=== PATIENT | male | born 1990 | race Caucasian/White ===

== ENCOUNTER 2023-02-20 09:17 | Emergency (ER) | payer BC, SELFPAY ==
--- NOTE | 2023-02-20 09:28 | ED_ITS ---
HPI - Skin/Abscess/Foreign Bdy General Chief complaint: Skin/Abscess/Foreign Body Stated complaint: Rash Time Seen by Provider: 02/20/23 09:20 Source: patient Mode of arrival: ambulatory Limitations: no limitations History of Present Illness HPI narrative: Carlin is a 32 year male patient presenting to the clinic today with complaints of possible poison qi to his left arm. He reports he has had this rash for a f ew days now however is now has spread on his chest last night. Review of Systems Review of Systems: Pertinent positives per HPI. Patient denies any fever, chills, headache, visual changes, dizziness, cough, runny nose, sore throat, shortness of breath, chest pain, palpitations, nausea, vomiting, diarrhea, constipation, abdominal pain, or any urinary issues. PMFSH Comments At the time of my signature, I reviewed and agree with the nursing past medical, surgical, social, and family history. There is no relevant family history pertinent to the patient complaint. Exam Narrative: General: Well-developed, well nourished, in no apparent distress Head: Normocephalic, atraumatic. Cardio: Regular rate and rhythm, s1 and s2 normal, no murmur appreciated. Resp: Clear to auscultation bilaterally, no rhonchi, rales, wheezing or rubs. Integumentary: [place], warm, and dry, red, blistered, itchy lesions to the left volar forearm and to the left chest wall Course Course Emergency Course: Portions of this record may have been created with voice recognition software. Level of Care: Express Care Visit Vital Signs Vital signs: Vital signs reviewed MDM - Skin/Abscess/Foreign Bdy MDM Narrative Medical decision making narrative: At the time of visit patient is resting comfortably on exam table. I suspect he has got poison qi dermatitis. Will place patient on triamcinolone cream. Supportive measures were discussed with the patient he voiced understanding discharge instructions and agrees to treatment plan. Differential Diagnosis Differential diagnosis: Likely cellulitis, eczema, insect bites and contact dermatitis Discharge Plan Discharge Clinical Impression: Allergic contact dermatitis due to plant Patient Disposition: Home, Self-Care Condition: Stable Instructions: Antibiotic Form, Poison Qi (ED) Additional Instructions: Apply triamcinolone cream as directed Avoid hot showers May apply calamine lotion to rash Avoid scratching and this causes rash to spread May take benadryl 25-50mg every 6 hours as needed for itching. Follow up with your PCP in 3-5 days if symptoms persist or sooner if they worsen Go to the Emergency Room if symptoms worsen- fever, rash spreading with treatment, shortness of breath, tongue swelling, drooling, or chest pain Prescriptions: New triamcinolone acetonide 0.1 % cream 1 applic topical BID 7 Days Qty: 30 0RF Follow-up/Referrals: PHYSICIAN,MATERIALS PLANNING ANALYST [Primary Care Provider] - Time of Disposition: 09:34 Quality NIHSS Nursing Documentation ED NIHSS nursing documentation: reviewed/agree
[2023-02-20 09:32] VITALS: BP 140/78; PULSE 57; RESP 16; TEMP 36.5; O2SAT 100
== END 2023-02-20 09:40 | disposition home or self-care (01) ==
PROVIDERS: Emergency Provider Nurse Practitioner Family
DX: L23.7 Allergic contact dermatitis due to plants, except food (principal)
CPT/HCPCS: 99213; G0463

== ENCOUNTER 2023-06-11 17:07 | Emergency (ER) | payer BC, SELFPAY ==
--- NOTE | 2023-06-11 17:16 | ED.WOUNDLAC ---
HPI - Wound/Laceration General Chief Complaint: Wound/Laceration Stated Complaint: Left Leg Laceration Time Seen by Provider: 06/11/23 17:22 Source: patient and RN notes reviewed Mode of arrival: ambulatory Limitations: no limitations History of Present Illness HPI narrative: 33-year-old male presents with concern for laceration to the left zuniga. He reports he cut it on a bicycle pedal prior to arrival. He denies decreased strength, sensation, range of motion in the leg. He is not up-to-date on his tetanus vaccination. Related Data Home Medications Medication Instructions Recorded Confirmed No Home Medications 06/11/23 06/11/23 Allergies Allergy/AdvReac Type Severity Reaction Status Date / Time No Known Allergies Allergy Verified 06/11/23 17:19 Review of Systems Review of Systems: CONSTITUTIONAL: Denies malaise, chills, sweats, or fever. SKIN: Reports laceration to the anterior left lower leg MUSCULOSKELETAL: Denies muscle skeletal pain NEUROLOGIC: Denies numbness, weakness All systems reviewed & are unremarkable except as noted in HPI and below PMFSH Comments At time of signature, agree with nursing past medical, surgical, social and family history. There is no relevant family history pertinent to the presenting complaint Exam Narrative: GENERAL: Well-appearing, well-nourished, and in no acute distress. HEAD: Normocephalic, atraumatic. EYES: PERRLA, conjunctivae clear, and EOMI. ENT: Mucous membranes moist. NECK: Supple. No lymphadenopathy CHEST: Clear to auscultation. No respiratory distress. HEART: Regular rate and rhythm. SKIN: Warm, dry. 4 cm linear laceration into the subcutaneous tissue noted to the left anterior mid leg NEURO: Alert and oriented x3. PSYCH: Normal mood and affect Course Course Emergency Course: Patient is aware of diagnosis, understands and agrees to treatment plan. Anticipatory guidance given. Patient agrees to follow-up as directed and is aware of reasons to seek care at the emergency department. Portions of this record may have been created with voice recognition software Level of Care: Express Care Visit Vital Signs Vital signs: Reviewed. Procedures Laceration Laceration 1: Date: 06/11/23 Time: 17:26 Site: lower extremity Side (If applicable): left Size (cm): 4.5 Description: linear Depth: simple, single layer Local Anesthetic: lidocaine 1% Amount of anesthesia used (mL): 4 Pre-repair: wound explored and irrigated extensively ====== Skin Level ====== Skin layer closed with: nylon Size (cm): 4-0 Number of sutures: 6 Technique: simple, interrupted ====== Subcutaneous Layer ====== ====== Muscle Layer ====== ====== Tendon Layer ====== MDM - Wound/Laceration MDM Narrative Medical decision making narrative: Wound explored for foreign body and copious irrigation provided with no evidence of FB. Discussed the potential of retained foreign body with the patient and signs/symptoms that should prompt the patient to immediately go to the ED for reevaluation. The wound was explored and no foreign bodies were found. There was no evidence of tendon or nerve lacerations. A sterile dressing was then applied and anticipatory guidance was provided. Tetanus prophylaxis [(was/was not)] given Differential Diagnosis Differential diagnosis: Likely laceration, abrasion and avulsion of skin Critical Care Time Critical Care Time Critical Care Time: No Discharge Plan Discharge Clinical Impression: Laceration Patient Disposition: Home, Self-Care Condition: Stable Instructions: Laceration (ED) Additional Instructions: Keep wound clean, and dry. Apply antibiotic ointment twice daily. Cover with bandage as needed to prevent contamination. Clean with soap and water twice daily, but do not soak, take baths, or swim until wound is completely healed.
[2023-06-11 17:21] VITALS: BP 130/56; PULSE 90; RESP 16; TEMP 37.3; O2SAT 98
== END 2023-06-11 17:55 | disposition home or self-care (01) ==
PROVIDERS: Emergency Provider Nurse Practitioner
DX: S81.812A Laceration without foreign body, left lower leg, initial encounter (principal); W45.8XXA Other foreign body or object entering through skin, initial encounter
CPT/HCPCS: 12002; 99212; G0463

== ENCOUNTER 2023-06-19 10:36 | Emergency (ER) | payer BC, SELFPAY ==
[2023-06-19 10:45] VITALS: BP 120/72; PULSE 76; RESP 16; TEMP 36.8; O2SAT 99
--- NOTE | 2023-06-19 10:57 | ED.WOUNDLAC ---
HPI - Wound/Laceration General Chief Complaint: Wound/Laceration Stated Complaint: suture removal Time Seen by Provider: 06/19/23 10:45 Source: patient Mode of arrival: ambulatory Limitations: no limitations History of Present Illness HPI narrative: Carlin is a 33-year-old male patient presenting to the clinic today for suture removal to his left lower anterior leg. He reports a days ago he cut his left lower leg. Six interrupted sutures were placed. Wound seems to be healing appropriately without sign of infection Related Data Home Medications Medication Instructions Recorded Confirmed No Home Medications 06/11/23 06/19/23 Allergies Allergy/AdvReac Type Severity Reaction Status Date / Time No Known Allergies Allergy Verified 06/19/23 10:41 Review of Systems Review of Systems: Pertinent positives per HPI. Patient denies any fever, chills, rash, headache, visual changes, dizziness, cough, runny nose, sore throat, shortness of breath, chest pain, palpitations, nausea, vomiting, diarrhea, constipation, abdominal pain, or any urinary issues. PMFSH Comments At the time of my signature, I reviewed and agree with the nursing past medical, surgical, social, and family history. There is no relevant family history pertinent to the patient complaint. Exam Narrative: General: Well-developed, well nourished, in no apparent distress Head: Normocephalic, atraumatic. Cardio: Regular rate and rhythm, s1 and s2 normal, no murmur appreciated. Resp: Clear to auscultation bilaterally, no rhonchi, rales, wheezing or rubs. Integumentary: [place], warm, and dry, intact without lesion, no rashes. Six interrupted sutures to the left mid anterior leg with wound that appears to be well healing, all 6 sutures removed with mild wound his in the middle of the wound. Wound was cleansed and benzoin/steri-Strips were applied Course Course Emergency Course: Portions of this record may have been created with voice recognition software. Level of Care: Express Care Visit Vital Signs Vital signs: Vital Signs Temperature 36.8 C 06/19/23 10:45 Pulse Rate 76 06/19/23 10:45 Respiratory Rate 16 06/19/23 10:45 Blood Pressure 120/72 06/19/23 10:45 Pulse Oximetry 99 06/19/23 10:45 Oxygen Delivery Room Air 06/19/23 10:45 Temperature 36.8 C 10/08/23 10:45 Pulse Rate 76 06/19/23 10:45 Respiratory Rate 16 06/19/23 10:45 Blood Pressure 120/72 06/19/23 10:45 Pulse Oximetry 99 06/19/23 10:45 Oxygen Delivery Room Air 06/19/23 10:45 Vital signs reviewed MDM - Wound/Laceration MDM Narrative Medical decision making narrative: At the time of visit patient is resting comfortably on the exam table. Six sutures removed and wound with mild dehiscense. Wound was cleansed and Steri-Strips were placed. Supportive measures were discussed with the patient he voiced understanding discharge instructions agrees to treatment plan. Differential Diagnosis Differential diagnosis: Likely laceration, abscess, abrasion and avulsion of skin Discharge Plan Discharge Clinical Impression: Encounter for removal of sutures, Dehiscence of wound of skin Patient Disposition: Home, Self-Care Condition: Stable Instructions: Antibiotic Form, Wound Dehiscence (ED), Stitches Removal (ED) Additional Instructions: Sutures removed in the clinic today Mild from dehiscence over the middle part of the wound Keep wound clean and dry Benzoin and Steri-Strips were applied Keep Steri-Strips in place. Allow them to fall off on their own. May trim the Steri-Strips if they start to roll up Follow-up with your PCP as needed Watch for signs and symptoms of infection- redness, streaking, swelling, purulent discharge, or increase in pain. Prescriptions: No Action No Home Medications Follow-up/Referrals: PHYSICIAN,ASSOCIATE PROFESSOR OF AUTOMATION [Primary Care Provider] - Time of Disposition: 10:58 Quality [facility]
== END 2023-06-19 11:03 | disposition home or self-care (01) ==
PROVIDERS: Emergency Provider Nurse Practitioner Family
DX: Z48.02 Encounter for removal of sutures (principal); T81.30XA Disruption of wound, unspecified, initial encounter
CPT/HCPCS: 99211; G0463